=== PATIENT | female | born 1965 | race Hispanic/Latino ===

== ENCOUNTER 2018-05-19 11:18 | Emergency (ER) | payer SELFPAY ==
[~2018-05-19] VITALS: Ht 154.9 cm; Wt 101.2 kg
--- OUTSIDE RECORDS SUMMARY | 2018-05-19 11:20 | XMS REPORT | Clinical Summary ---
Author Author Sarmad Bunch Organization [facility] Address Unknown Phone Unavailable Care Team Providers Care Brand Lead Name Role Phone PCP Unavailable Allergies Not on File Medications Not on file Active Problems Not on file Social History Date Tobacco Use Types Packs/Day Years Used Never Assessed Sex Assigned at Date Recorded Not on file Industry Job Start Date Occupation Not on file Not on file Not on file Travel End Travel History Travel Start No recent travel history available. Last Filed Vital Signs Not on file Plan of Treatment Health Maintenance Due Date Last Done Comments CERVICAL CANCER SCREENING 1986 BREAST CANCER SCREENING 2015 COLON CANCER SCREENING 2015 SHINGLES VACCINES (1 of 2015 2) INFLUENZA VACCINE 11/24/2017 Results Not on fileafter 05/18/2017 Advance Directives Patient has advance care planning documents on file. For more information, melanie hensley contact: Sarmad Bunch [id number] [place] [address]
[2018-05-19] MEDS ORDERED: KETOROLAC TROMETHAMINE 60 MG/2 ML VIAL IM ONE (12:00)
--- NOTE | 2018-05-19 12:46 | NUR ---
MEDICATED ORDERED FOR PAIN. PT TO DE DISCHARGED HOME AFTER SHOT TIME.
[2018-05-19] MEDS ORDERED: KETOROLAC TROME10 MG PO (12:59)
[2018-05-19] MEDS ORDERED: PREDNISONE20 MG PO (12:59)
[2018-05-19] MEDS ORDERED: PREDNISONE 20 MG TAB PO ONE (13:00)
== END 2018-05-19 13:40 | disposition home or self-care (01) ==
LOC: ER 11:18
DX: M54.41 Lumbago with sciatica, right side (principal); E66.9 Obesity, unspecified
CPT/HCPCS: 99282; J1885; J7512

== ENCOUNTER → 2020-04-24 | Outpatient (CLI) | payer OTHER ==
[~2020-04-24] MED LIST: COVID-19 VACC, MRNA(MODERNA)/PF 100 MCG/0.5 ML VIAL IM ONE; KETOROLAC TROME10 MG PO; PREDNISONE20 MG PO
== END ==
LOC: VACCPMC 12:03
DX: Z23 Encounter for immunization (principal); Z20.828 Contact with and (suspected) exposure to other viral communicable diseases

== ENCOUNTER → 2020-05-30 | Outpatient (CLI) | payer OTHER | END | DRG 951 | LOC: VACCPMC 09:11 | DX: Z23 Encounter for immunization (principal); Z20.822 Contact with and (suspected) exposure to COVID-19 | CPT/HCPCS: 0012A; 91301 ==

== ENCOUNTER 2020-08-13 22:50 | Emergency (ER) | payer SELFPAY ==
[~2020-08-13] VITALS: Ht 154.9 cm; Wt 98.9 kg
[~2020-08-13 22:50] MED LIST changes: -COVID-19 VACC, MRNA(MODERNA)/PF 100 MCG/0.5 ML VIAL IM ONE
[2020-08-13] MEDS ORDERED: TYLENOL # 31 EA PO (23:12)
== END 2020-08-13 23:20 | disposition home or self-care (01) ==
LOC: FSED 23:09
DX: M25.511 Pain in right shoulder (principal); S43.401A Unspecified sprain of right shoulder joint, initial encounter; F17.210 Nicotine dependence, cigarettes, uncomplicated
CPT/HCPCS: 99282

== ENCOUNTER → 2021-04-23 | Outpatient (CLI) | payer OTHER ==
[~2021-04-23] MED LIST changes: +COVID-19 VACC, MRNA(MODERNA)/PF 100 MCG/0.5 ML VIAL IM ONE; +TYLENOL # 31 EA PO
== END ==
LOC: VACCPMC 08:00
DX: Z23 Encounter for immunization (principal); Z20.822 Contact with and (suspected) exposure to COVID-19
CPT/HCPCS: 91301